=== PATIENT | male | born 1970 | race African-American/Black ===

== ENCOUNTER 2017-08-25 00:06 | Emergency (ER) | payer SELFPAY ==
[2017-08-25] MEDS ORDERED: OXYCODONE-ACETAMINOPHEN 5-325 MG TABLET PO ONE (01:18)
--- NOTE | 2017-08-25 01:22 | ER Document Report ---
ED General - General Chief Complaint: Knee Pain Stated Complaint: KNEE PAIN Time Seen by Provider: 08/25/17 01:09 Mode of Arrival: Ambulatory Information source: Patient, Relative Notes: 47-year-old male with a history of gout presents with complaint of left knee pain that started 5 days prior to arrival. Patient states that he awoke with left knee pain and swelling that has progressively worsened.Patient denies any recent injury. He states this occurs About once a year. He does usually have indomethacin but has run out. He denies any fever, chills, chest pain, shortness of breath. He denies any recent travel, recent surgery, history of malignancy or prior DVT. - Related Data Allergies/Adverse Reactions: No Known Allergies Allergy (Unverified 08/25/17 00:07) Past Medical History - General Information source: Patient - Social History Smoking Status: Never Smoker Frequency of alcohol use: None Drug Abuse: None Occupation: print binding and finishing worker Lives with: Spouse/Significant other Family History: Reviewed & Not Pertinent Patient has suicidal ideation: No Patient has homicidal ideation: No - Medical History Medical History: Other - Gout Review of Systems - Review of Systems Constitutional: denies: Fever, Weakness EENT: No symptoms reported Cardiovascular: denies: Chest pain, Palpitations Respiratory: denies: Cough, Hurts to breathe, Short of breath Gastrointestinal: denies: Nausea, Vomiting Musculoskeletal: Gout, Joint pain, Joint swelling, Leg swelling Physical Exam - Vital signs Vitals: Temp Pulse Resp BP Pulse Ox 98.6 F 76 18 179/109 H 97 08/25/17 00:16 08/25/17 00:16 08/25/17 00:16 08/25/17 00:16 08/25/17 00:16 - Extremities General upper extremity: Normal inspection, Nontender, Normal color, Normal ROM , Normal temperature General lower extremity: Normal inspection, Nontender, Normal color, Normal ROM , Normal temperature, Normal weight bearing. No: Randolph's sign Knee: Tender, Pain with ROM, Other - Large suprapatellar Left knee effusion. No : Deformity, Instability Calf: Tender Ankle: Normal Foot: Normal Course - Re-evaluation Re-evalutation: 08/25/17 02:16 Bedside ultrasound was performed using continuous compression from the common femoral artery down to the popliteal artery. There is good compressibility throughout and no evidence of DVT at this time. Bedside ultrasound was also used to evaluate left knee effusion. There is a large pocket of anechoic fluid. Patient agreeable to joint aspiration at this time. Risks of infection were discussed with the patient. 08/25/17 02:41 Ultrasound-guided arthrocentesis was performed using sterile procedure. The joint was injected with 10 cc of lidocaine. 40 cc of synovial fluid with blood was removed. Patient reports improvement of pain and improvement of range of motion after joint aspiration. 08/25/17 03:09 Patient requesting discharge home prior to results of fluid analysis. I have low suspicion for septic joint. I will call the patient with results once they are back. Knee X-Ray 08/25/17 01:18 IMPRESSION: Moderate suprapatellar left knee effusion. 08/26/17 12:21 analysis of fluid reviewed and consistent with an inflammatory effusion Microbiology 08/25/17 02:40 Gram Stain - Preliminary Knee Fluid - Joint Body Fluid Culture - Preliminary NO GROWTH IN 1 DAY Laboratory 08/25/17 08/25/17 02:40 02:40 Fluid Type SYNOVIAL SYNOVIAL Fluid Source KNEE LEFT KNEE Fluid Color RED Fluid Appearance CLOUDY Fluid Viscosity LIQUID Fluid WBC 5722 Fluid RBC 8444 Fluid Seg Neutrophils 80 Fluid Lymphocytes 16 Fluid Monocytes 4 Fluid Crystals NONE OBSERVED Ca Pyrophosphate Cryst NONE OBSERVED Synov Monosodium Urate NONE OBSERVED - Vital Signs Vital signs: Temp Pulse Resp BP Pulse Ox 98.3 F 72 14 149/98 H 97 08/25/17 03:40 08/25/17 03:40 08/25/17 03:40 08/25/17 03:40 08/25/17 03:40 Procedures - Joint Aspiration Left Knee Time completed: 02:43 Consent obtained: Yes - verbal Joint aspiration pre-procedure: Sterile PPE donned, Betadine prep applied, Sterile drapes applied Anesthetic type: 1% Lidocaine mL's of anesthetic: 10 Needle size: 25 Amount/type of drainage: 40 cc Number of attempts: 1 Complications: No Discharge - Discharge Clinical Impression: Effusion, left knee, Left knee pain Condition: Good Disposition: HOME, SELF-CARE Instructions: Ice & Elevation ([facility]), Knee Effusion ([facility]), Knee Immobilizing Splint ([facility]), Oral Narcotic Medication ([facility]) Prescriptions: Hydrocodone/Acetaminophen [Dent 5-325 mg Tablet] 1 tab PO Q6H #10 tablet Naproxen 500 mg PO Q12H #20 tablet Prednisone [Deltasone 20 mg Tablet] 3 tab PO DAILY 5 Days #15 tablet
--- NOTE | 2017-08-25 02:05 | RADIOLOGY REPORT (SQ) ---
EXAM DESCRIPTION: KNEE LEFT 2 VIEWS CLINICAL HISTORY: 47 years, Male, pain swelling COMPARISON: None. NUMBER OF VIEWS: Two Findings: Moderate suprapatellar joint effusion. Mild-moderate osteoarthritis. IMPRESSION: Moderate suprapatellar left knee effusion.
[2017-08-25] MEDS ORDERED: LIDOCAINE 1% INJ (10 MG/ML) 10 ML MDV INJ ONE (02:17)
[2017-08-25 03:34] LABS: CALCIUM PYROPHOSPHATE CRYSTALS NONE OBSERVED; MONOSODIUM URATE CRYSTALS NONE OBSERVED; OTHER CRYSTALS NONE OBSERVED
[2017-08-25 03:45] VITALS: BP 149/98
[2017-08-25 04:31] LABS: FLUID TYPE SYNOVIAL
[2017-08-25 04:32] LABS: FLUID APPEARANCE CLOUDY; FLUID COLOR RED; FLUID SOURCE KNEE; FLUID VISCOSITY LIQUID
== END 2017-08-25 03:47 | disposition home or self-care (01) ==
LOC: ER 00:06
PROC: 0S9D3ZZ Drainage of Left Knee Joint, Percutaneous Approach (ICD-10-PCS; principal; 2017-08-25)
PROC: BQ48ZZZ Ultrasonography of Left Knee (ICD-10-PCS; 2017-08-25)
DX: M25.462 Effusion, left knee (principal); M25.562 Pain in left knee; Z79.899 Other long term (current) drug therapy
CPT/HCPCS: 87070; 87075; 87205; 89050; 89060; 99284

== ENCOUNTER 2019-08-13 10:05 | Emergency (ER) | payer BC ==
[2019-08-13 11:05] LABS: ABSOLUTE BASOPHILS # (AUTO) 0.1 10^3/uL (0.0-0.2); ABSOLUTE LYMPHOCYTES (AUTO) 1.9 10^3/uL (0.5-4.7); ABSOLUTE MONOCYTES (AUTO) 0.4 10^3/uL (0.1-1.4); ABSOLUTE NEUT (AUTO) 2.7 10^3/uL (1.7-8.2); BASOPHILS % (AUTO) 1.1 % (0-2); EOSINOPHILS % (AUTO) 0.7 % (0-6); HEMATOCRIT 34.7 % (37.9-51.0); LYMPHOCYTES % (AUTO) 37.8 % (13-45); MEAN CORPUSCULAR HEMOGLOBIN 29.1 pg (27.0-33.4); MEAN CORPUSCULAR HGB CONC 34.5 g/dL (32.0-36.0); MEAN CORPUSCULAR VOLUME 84 fl (80-97); MONOCYTES % (AUTO) 7.7 % (3-13); PLATELET COUNT 290 10^3/uL (150-450); RED BLOOD COUNT 4.12 10^6/uL (4.35-5.55); RED CELL DISTRIBUTION WIDTH 15.2 % (11.5-14.0); SEGMENTED NEUTROPHILS % (AUTO) 52.7 % (42-78); TOTAL CELLS COUNTED % (AUTO) 100 %; WHITE BLOOD COUNT 5.1 10^3/uL (4.0-10.5)
--- NOTE | 2019-08-13 11:08 | RADIOLOGY REPORT (SQ) ---
EXAM DESCRIPTION: CHEST SINGLE VIEW COMPLETED DATE/TIME: 08/13/2019 10:55 am REASON FOR STUDY: bed 7 chest pain COMPARISON: None. EXAM PARAMETERS: NUMBER OF VIEWS: One view. TECHNIQUE: Single frontal radiographic view of the chest acquired. RADIATION DOSE: NA LIMITATIONS: None. FINDINGS: LUNGS AND PLEURA: No opacities, masses or pneumothorax. No pleural effusion. MEDIASTINUM AND HILAR STRUCTURES: No masses. Contour normal. HEART AND VASCULAR STRUCTURES: Heart normal in size. Normal vasculature. BONES: No acute findings. HARDWARE: None in the chest. OTHER: No other significant finding. IMPRESSION: NO ACUTE RADIOGRAPHIC FINDING IN THE CHEST. TECHNICAL DOCUMENTATION: JOB ID: [id number] 2010 [employer]- All Rights Reserved Reading location - IP/workstation name: [email or web address]
[2019-08-13 11:26] LABS: ALBUMIN 4.3 g/dL (3.5-5.0); ALKALINE PHOSPHATASE 107 U/L (38-126); ANION GAP 10 (5-19); ASPARTATE AMINO TRANSFERASE 53 U/L (17-59); BILIRUBIN,DIRECT 0.4 mg/dL (0.0-0.4); BILIRUBIN,TOTAL 0.8 mg/dL (0.2-1.3); BLOOD UREA NITROGEN 13 mg/dL (7-20); CALCIUM 9.7 mg/dL (8.4-10.2); CARBON DIOXIDE 23 mmol/L (22-30); CHLORIDE 104 mmol/L (98-107); CREATINE KINASE 209 U/L (55-170); GLUCOSE 90 mg/dL (75-110); POTASSIUM 5.6 mmol/L (3.6-5.0); TOTAL PROTEIN 8.5 g/dL (6.3-8.2)
[2019-08-13 11:35] LABS: CREATINE KINASE MB 2.17 ng/mL (<4.55)
[2019-08-13 11:40] LABS: TROPONIN I < 0.012 ng/mL
--- NOTE | 2019-08-13 11:43 | ER Document Report ---
ED General - General Chief Complaint: Chest Pain Stated Complaint: CHEST PAIN Time Seen by Provider: 08/13/19 11:24 Primary Care Provider: TIANNA BAEZ MD [Primary Care Provider] - Follow up as needed TRAVEL OUTSIDE OF THE [place] IN LAST 30 DAYS: No - HPI Notes: Patient is a 49-year-old male with a history of hypertension and hypercholesterolemia who presents complaining of having left chest pain that was described as sharp this morning when he was at work. Patient states that that pain has been coming and going, and can worsen with deep inspiration and certain movements intermittently as well. Pain does not radiate. Patient first went to an urgent care and was given nitro, aspirin, and clonidine as his systolic was over 200. Patient states that he believes the nitro did help. Pain is significantly improved from what it was. Patient states that he has not been t aking his medications for a couple months. Denies drug allergies. No history of DM, CAD. Denies any prolonged immobilization, distance travel, recent surgery/trauma, personal cancer history, hormone use, or previous DVT/PE. Denies any headache, fever, neck pain, URI, sore throat, palpitations, syncope, cough, shortness of breath, wheeze, dyspnea, abdominal pain, nausea/vomiting/diarrhea, urinary retention, dysuria, hematuria, or rash. - Related Data Allergies/Adverse Reactions: No Known Allergies Allergy (Unverified 08/25/17 00:07) Home Medications: LISINOPRIL AND SIMVASATIN BUT HAS NOT TAKEN IN SEVERAL MTHS. ALLOPURINOL AND MULTIVITAMIN Past Medical History - Social History Smoking Status: Never Smoker Chew tobacco use (# tins/day): No Frequency of alcohol use: Occasional Drug Abuse: None Family History: Reviewed & Not Pertinent Patient has suicidal ideation: No Patient has homicidal ideation: No - Past Medical History Cardiac Medical History: Reports: Hx Hypercholesterolemia, Hx Hypertension Renal/ Medical History: Denies: Hx Peritoneal Dialysis Review of Systems - Review of Systems -: Yes All other systems reviewed and negative Physical Exam - Vital signs Vitals: Pulse Ox 100 08/13/19 10:51 - Notes Notes: PHYSICAL EXAMINATION: GENERAL: Well-appearing, well-nourished and in no acute distress. HEAD: Atraumatic, normocephalic. EYES: Pupils equal round and reactive to light, extraocular movements intact, sclera anicteric, conjunctiva are normal. ENT: Nares patent and without discharge. oropharynx clear without exudates. N o tonsilar hypertrophy or erythema. Moist mucous membranes. NECK: Normal range of motion, supple without lymphadenopathy LUNGS: Breath sounds clear to auscultation bilaterally and equal. No wheezes rales or rhonchi. HEART: Regular rate and rhythm without murmurs, rubs, gallops. ABDOMEN: Soft, nontender, nondistended abdomen. No guarding, no rebound. Normal bowel sounds present. No CVA tenderness bilaterally. Musculoskeletal: FROM to passive/active. Strength 5+/5. Randolph neg. No asymmetry to LE's. Extremities: No cyanosis, clubbing, or edema b/l. Peripheral pulses 2+. Capillary refill less than 3 seconds. NEUROLOGICAL: Normal speech, normal gait. PSYCH: Normal mood, normal affect. SKIN: Warm, Dry, normal turgor, no rashes or lesions noted. Course - Re-evaluation Re-evalutation: 08/13/19 11:50 Patient is an afebrile, well-hydrated, 49-year-old male who presents with nonspecific chest pain. Vitals are acceptable without significant tachycardia, tachypnea, or hypoxia. PE is otherwise unremarkable. Patient's lungs are clear to auscultation bilaterally. He is nontoxic-appearing and is currently to lerating p.o. without difficulty. Initial labs and imaging are unremarkable. Patient does not have any dyspnea or shortness of breath associated. Patient believes the nitro may have helped, but is not entirely sure at this time. Patient is currently adamant that he does not want to be admitted to the hospital. Patient is agreeable to stay for a delta troponin. Pt's heart score is a 3. Wells score of 0. 08/13/19 14:02 I did review with Dr. Liu, 2nd enzyme neg. Pt states that he will still feel a little pain with deep inspiration and certain chest movements. Pt is still adamant about being discharged home. We will further evaluate with a d-dimer. If unremarkable we will discharge home w. strict return precautions. 08/13/19 14:53 D-dimer elevated. CTA ordered. 08/13/19 16:40 Patient is an afebrile, well-hydrated 49-year-old male who presents to the ED with atypical chest pain, reproduced by movement and deep breath. Vitals are acceptable without any significant tachycardia, tachypnea, or hypoxia. PE is otherwise unremarkable. Pt's lungs are CTAB. Patient is nontoxic-appearing and is tolerating p.o. without any difficulties. Pt is currently asymptomatic. CBC, CMP, EKG/cardiac enzymes 2, chest x-ray, CTA chest are all unremarkable for any acute pathology. Patient has a heart score of 3, Wells score of 0. Patient does not have any chest pain, dyspnea, or shortness of breath. Patient's presentation and symptomatology creates low suspicion for ACS, PE, pneumothorax, pericarditis, dissection, respiratory compromise, severe dehydration, sepsis, meningitis, or other systemic emergent condition at this time. Patient is aware that his condition can change from initial presentation and he needs to monitor symptoms closely and seek medical attention for any acute changes. Pt is feeling better and would like to go home. Pt does not want admitted. Recommend conservative measures for symptoms. Recheck with your PCM in 2-3 days. Schedule consult with Cardiology. Return to the ED with any worsening/concerning symptoms otherwise as reviewed in discharge. Patient is in agreement. - Vital Signs Vital signs: Temp Pulse Resp BP Pulse Ox 98.6 F 11 L 137/95 H 100 08/13/19 16:16 08/13/19 15:42 08/13/19 15:42 08/13/19 15:42 - Laboratory Result Diagrams: 08/13/19 10:46 08/13/19 10:46 Laboratory results interpreted by me: 08/13/19 08/13/19 08/13/19 10:46 10:46 14:15 RBC 4.12 L Hgb 12.0 L Hct 34.7 L RDW 15.2 H D-Dimer 1.13 H Potassium 5.6 H Creatine Kinase 209 H Total Protein 8.5 H Discharge - Discharge Clinical Impression: Atypical chest pain Condition: Stable Disposition: HOME, SELF-CARE Instructions: Chest Pain of Unclear Cause ([facility]) Additional Instructions: Maintain adequate fluid and food intake Take home medications as directed Low sodium/fat diet Monitor blood pressure daily and keep a log Monitor symptoms for any acute changes Recheck with your PCM in 3-5 days Schedule an appointment with cardiology for further evaluation and management Return to the ED with any worsening symptoms and/or development of fever, headache, chest pain, palpitations, syncope, shortness of breath, trouble breathing, abdominal pain, n/v/d, blood in stool/urine, loss of control of bowel/bladder, urinary retention, muscle weakness/paralysis, numbness/tingling, or other worsening symptoms that are concerning to you. Forms: Elevated Blood Pressure Referrals: DEE DEE GARRISON MD [ACTIVE STAFF] - Follow up in 3-5 days TIANNA BAEZ MD [Primary Care Provider] - Follow up in 3-5 days
--- NOTE | 2019-08-13 12:11 | EKG REPORT ---
SEVERITY:- NORMAL ECG - SINUS RHYTHM : Confirmed by: Harjit Rivera MD 13-Aug-2019 12:10:13
[2019-08-13] MEDS ORDERED: LABETALOL HCL INJ 20 MG/4 ML DISP.SYRIN IV ONE (13:05)
--- NOTE | 2019-08-13 16:15 | RADIOLOGY REPORT (SQ) ---
EXAM DESCRIPTION: CTA CHEST COMPLETED DATE/TIME: 08/13/2019 4:02 pm REASON FOR STUDY: chest pain, elevated d-dimer COMPARISON: None. TECHNIQUE: CT scan of the chest performed using helical scanning technique with dynamic intravenous contrast injection. Images reviewed with lung, soft tissue and bone windows. Reconstructed coronal and sagittal MPR images reviewed. Additional 3 dimensional post-processing performed to develop Maximal Intensity Projection images (DC P). All images stored on PACS. All CT scanners at this facility use dose modulation, iterative reconstruction, and/or weight based d osing when appropriate to reduce radiation dose to as low as reasonably achievable (ALARA). [facility]: Dose Right [facility]: CareDose [facility]: Dose Right [facility]: Teradose 4D [facility]: Looklet CONTRAST TYPE AND DOSE: contrast/concentration: Isovue 350.00 mg/ml; Total Contrast Delivered: 71.0 ml; Total Saline Delivered: 67.9 ml Contrast bolus adequate for pulmonary arteries and aorta. RENAL FUNCTION: BUN 13 creatinine 0.7. RADIATION DOSE: CT Rad equipment meets quality standard of care and radiation dose reduction techniq ues were employed. CTDIvol: 14.9 - 21.9 mGy. DLP: 868 mGy-cm. . LIMITATIONS: None. FINDINGS: LUNGS AND PLEURA: No masses, infiltrates, or pneumothorax. No pleural effusions or pleura l calcifications. AORTA AND GREAT VESSELS: No aneurysm. No dissection. Incidental duplicated left superior vena cava. HEART: No pericardial effusion. No significant coronary artery calcifications. PULMONARY ARTERIES: No emboli visualized in the main pulmonary arteries or the segmental branches. HILAR AND MEDIASTINAL STRUCTURES: No identified masses or abnormal nodes. HARDWARE: None in the chest. UPPER ABDOMEN: No significant findings. Limited exam. THYROID AND OTHER SOFT TISSUES: No masses. No adenopathy. BONES: No acute or significant finding. 3D MIPS: Confirm above findings. OTHER: No other significant finding. IMPRESSION: NORMAL CTA OF THE CHEST. NO PULMONARY EMBOLI. COMMENT: Quality ID # [id number]: Final reports with documentation of one or more dose reduction techniques (e.g., Automated exposure control, adjustment of the mA and/or kV according to patient size, use of iterative reconstruction technique) TECHNICAL DOCUMENTATION: JOB ID: [id number] 2010 [employer]- All Rights Reserved Reading location - IP/workstation name: [email or web address]
[2019-08-13 16:45] VITALS: BP 149/95
== END 2019-08-13 16:54 | disposition home or self-care (01) ==
LOC: ER 10:05
DX: R07.89 Other chest pain (principal); I10 Essential (primary) hypertension; T46.4X6A Underdosing of angiotensin-converting-enzyme inhibitors, initial encounter; E78.00 Pure hypercholesterolemia, unspecified; T46.6X6A Underdosing of antihyperlipidemic and antiarteriosclerotic drugs, initial encounter; Z91.14 Patient's other noncompliance with medication regimen; Z79.899 Other long term (current) drug therapy
CPT/HCPCS: 93005; 99285; 96374; 36415; 82553; 82550; 85025; 80053; 84484; 85379; 71045; 71275; 93010; J3490

== ENCOUNTER 2019-10-09 09:56 | Emergency (ER) | payer BC ==
--- NOTE | 2019-10-09 10:12 | ER Document Report ---
ED Medical Screen (RME) - General Chief Complaint: Chest Pain Stated Complaint: CHEST PAIN Time Seen by Provider: 10/09/19 10:05 Primary Care Provider: TIANNA BAEZ MD [Primary Care Provider] - Follow up as needed Notes: Patient is a 49-year-old male with a history of hypertension who presents to the emergency department with a chief complaint of chest pain and a headache. Patient states that his chest pain started yesterday afternoon. States that it is in the left side of his chest. He also has complaints of a headache, which started this morning. Patient states that he stopped taking his lisinopril because he was on vacation. He took his lisinopril this morning. Exam: Blood pressure 193/117. I have greeted and performed a rapid initial assessment of this patient. A comprehensive ED assessment and evaluation of the patient, analysis of test results and completion of medical decision making process will be conducted by an additional ED providers. TRAVEL OUTSIDE OF THE [place] IN LAST 30 DAYS: No - Related Data Allergies/Adverse Reactions: No Known Allergies Allergy (Verified 10/09/19 10:10) Past Medical History - Past Medical History Cardiac Medical History: Reports: Hx Hypercholesterolemia, Hx Hypertension Renal/ Medical History: Denies: Hx Peritoneal Dialysis Physical Exam - Vital signs Vitals: Temp Pulse Resp BP Pulse Ox 99.0 F 100 18 193/117 H 96 10/09/19 10:10/09/19 10:10/09/19 10:10/09/19 10:09 10/09/19 10:09 Course - Vital Signs Vital signs: Temp Pulse Resp BP Pulse Ox 99.0 F 100 18 193/117 H 96 10/09/19 10:09 10/09/19 10:09 10/09/19 10:10/09/19 10:10/09/19 10:09 Doctor's Discharge - Discharge Referrals: TIANNA BAEZ MD [Primary Care Provider] - Follow up as needed
[2019-10-09 10:29] LABS: ABSOLUTE LYMPHOCYTES (AUTO) 1.6 10^3/uL (0.5-4.7); ABSOLUTE MONOCYTES (AUTO) 0.5 10^3/uL (0.1-1.4); ABSOLUTE NEUT (AUTO) 3.9 10^3/uL (1.7-8.2); BASOPHILS % (AUTO) 0.5 % (0-2); EOSINOPHILS % (AUTO) 0.1 % (0-6); HEMATOCRIT 39.8 % (37.9-51.0); HEMOGLOBIN 13.4 g/dL (13.5-17.0); LYMPHOCYTES % (AUTO) 26.3 % (13-45); MEAN CORPUSCULAR HEMOGLOBIN 27.7 pg (27.0-33.4); MEAN CORPUSCULAR HGB CONC 33.7 g/dL (32.0-36.0); MEAN CORPUSCULAR VOLUME 82 fl (80-97); MONOCYTES % (AUTO) 7.9 % (3-13); PLATELET COUNT 316 10^3/uL (150-450); RED BLOOD COUNT 4.84 10^6/uL (4.35-5.55); RED CELL DISTRIBUTION WIDTH 17.5 % (11.5-14.0); SEGMENTED NEUTROPHILS % (AUTO) 65.2 % (42-78); TOTAL CELLS COUNTED % (AUTO) 100 %
--- NOTE | 2019-10-09 10:41 | RADIOLOGY REPORT (SQ) ---
EXAM DESCRIPTION: CT HEAD WITHOUT IMAGES COMPLETED DATE/TIME: 10/09/2019 10:33 am REASON FOR STUDY: headache; high blood pressure COMPARISON: None. TECHNIQUE: Axial images acquired through the brain without intravenous contrast. Images reviewed wi th bone, brain and subdural windows. Additional sagittal and coronal reconstructions were generated. Images stored on PACS. All CT scanners at this facility use dose modulation, iterative reconstruction, and/or weight based d osing when appropriate to reduce radiation dose to as low as reasonably achievable (ALARA). [facility]: Dose Right [facility]: CareDose [facility]: Dose Right [facility]: Teradose 4D [facility]: Qulsar RADIATION DOSE: CT Rad equipment meets quality standard of care and radiation dose reduction techniq ues were employed. CTDIvol: 53.2 mGy. DLP: 1044 mGy-cm. mGy. LIMITATIONS: None. FINDINGS: VENTRICLES: Normal size and contour. CEREBRUM: No masses. No hemorrhage. No midline shift. No evidence for acute infarction. Normal gra y/white matter differentiation. No areas of low density in the white matter. CEREBELLUM: No masses. No hemorrhage. No alteration of density. No evidence for acute infarction. EXTRAAXIAL SPACES: No fluid collections. No masses. ORBITS AND GLOBE: No intra- or extraconal masses. Normal contour of globe without masses. CALVARIUM: No fracture. PARANASAL SINUSES: No fluid or mucosal thickening. SOFT TISSUES: No mass or hematoma. OTHER: No other significant finding. IMPRESSION: NORMAL BRAIN CT WITHOUT CONTRAST. EVIDENCE OF ACUTE STROKE: NO. COMMENT: Quality ID # [id number]: Final reports with documentation of one or more dose reduction techniques (e.g., Automated exposure control, adjustment of the mA and/or kV according to patient size, use of iterative reconstruction technique) TECHNICAL DOCUMENTATION: JOB ID: [id number] 2010 [employer]- All Rights Reserved Reading location - IP/workstation name: [email or web address]
[2019-10-09 10:49] LABS: ALBUMIN 4.8 g/dL (3.5-5.0); ALKALINE PHOSPHATASE 137 U/L (38-126); ANION GAP 12 (5-19); ASPARTATE AMINO TRANSFERASE 40 U/L (17-59); BILIRUBIN,TOTAL 0.5 mg/dL (0.2-1.3); BLOOD UREA NITROGEN 12 mg/dL (7-20); CALCIUM 10.1 mg/dL (8.4-10.2); CARBON DIOXIDE 26 mmol/L (22-30); CHLORIDE 97 mmol/L (98-107); GLUCOSE 104 mg/dL (75-110); POTASSIUM 4.3 mmol/L (3.6-5.0); TOTAL PROTEIN 8.6 g/dL (6.3-8.2)
--- NOTE | 2019-10-09 11:01 | RADIOLOGY REPORT (SQ) ---
EXAM DESCRIPTION: CHEST SINGLE VIEW IMAGES COMPLETED DATE/TIME: 10/09/2019 10:36 am REASON FOR STUDY: chest pain COMPARISON: None. NUMBER OF VIEWS: One view. TECHNIQUE: Single frontal radiographic view of the chest acquired. LIMITATIONS: None. FINDINGS: LUNGS AND PLEURA: No opacities, masses or pneumothorax. No pleural effusion. MEDIASTINUM AND HILAR STRUCTURES: No masses. Contour normal. HEART AND VASCULAR STRUCTURES: Heart normal in size. Normal vasculature. BONES: No acute findings. HARDWARE: None in the chest. OTHER: No other significant finding. IMPRESSION: NO SIGNIFICANT RADIOGRAPHIC FINDING IN THE CHEST. TECHNICAL DOCUMENTATION: JOB ID: [id number] 2010 [employer]- All Rights Reserved Reading location - IP/workstation name: [email or web address]
[2019-10-09 11:17] VITALS: BP 176/106
--- NOTE | 2019-10-09 11:24 | ER Document Report ---
ED Cardiac - General Chief Complaint: Chest Pain Stated Complaint: CHEST PAIN Time Seen by Provider: 10/09/19 10:05 Primary Care Provider: TIANNA BAEZ MD [Primary Care Provider] - Follow up as needed Mode of Arrival: Ambulatory Information source: Patient TRAVEL OUTSIDE OF THE [place] IN LAST 30 DAYS: No - HPI Notes: Patient presents complaining of chest pain and headache. He states both the symptoms started yesterday. He states for the last week he has been on vacation and therefore is not taking his blood pressure medication. He states that he noticed his blood pressure was elevated yesterday. He has started taking his blood pressure medication again today. The headache is bilateral and throbbing. Nothing makes it better or worse. It does radiate throughout his head. The chest pain has been sharp and on the left side of the chest. He has had some mild shortness of breath with it. No nausea. Nothing makes the chest pain better or worse. - Related Data Allergies/Adverse Reactions: No Known Allergies Allergy (Verified 10/09/19 10:10) Home Medications: lisinopril, endomethicin, allopurinol, simvastatin, Past Medical History - General Information source: Patient - Social History Smoking Status: Never Smoker Chew tobacco use (# tins/day): Yes - 1/2 Frequency of alcohol use: Occasional Drug Abuse: None Family History: Reviewed & Not Pertinent Patient has homicidal ideation: No - Past Medical History Cardiac Medical History: Reports: Hx Hypercholesterolemia, Hx Hypertension Renal/ Medical History: Denies: Hx Peritoneal Dialysis Review of Systems - Review of Systems Constitutional: denies: Chills, Fever Cardiovascular: Chest pain. denies: Palpitations Respiratory: Short of breath. denies: Cough -: Yes All other systems reviewed and negative Physical Exam - Vital signs Vitals: Temp 99 F 10/09/19 09:56 Interpretation: Normal - General General appearance: Appears well, Alert - HEENT Head: Normocephalic, Atraumatic Eyes: Normal Pupils: PERRL - Respiratory Respiratory status: No respiratory distress Chest status: Nontender Breath sounds: Normal Chest palpation: Normal - Cardiovascular Rhythm: Regular Heart sounds: Normal auscultation Murmur: No - Abdominal Inspection: Normal Distension: No distension Bowel sounds: Normal Tenderness: Nontender Organomegaly: No organomegaly - Back Back: Normal, Nontender - Extremities General upper extremity: Normal inspection, Nontender, Normal color, Normal ROM, Normal temperature General lower extremity: Normal inspection, Nontender, Normal color, Normal ROM, Normal temperature, Normal weight bearing. No: Randolph's sign - Neurological Neuro grossly intact: Yes Cognition: Normal Orientation: AAOx4 [place] Coma Scale Eye Opening: Spontaneous Mal Coma Scale Verbal: Oriented Mal Coma Scale Motor: Obeys Commands Mal Coma Scale Total: 15 Speech: Normal Cranial nerves: Normal Cerebellar coordination: Normal Motor strength normal: LUE, RUE, LLE, RLE Additional motor exam normals: Equal developer evangelist. No: Pronator drift Sensory: Normal - Psychological Associated symptoms: Normal affect, Normal mood - Skin Skin Temperature: Warm Skin Moisture: Dry Skin Color: Normal Course - Re-evaluation Re-evalutation: 10/09/19 11:21 Patient presents with chest pain and headache. Patient has no evidence of CVA. Head CT and exam including complete neurological exam are normal. No evidence of any type of cardiac pathology. Patient will be instructed to take an extra lisinopril today. Patient also be instructed that he needs to discuss outpatient referral to cardiology for cardiac stress test. - Vital Signs Vital signs: Temp Pulse Resp BP Pulse Ox 99.4 F 82 14 176/106 H 97 10/09/19 10:33 10/09/19 10:33 10/09/19 11:04 10/09/19 11:04 10/09/19 11:04 - Laboratory Result Diagrams: 10/09/19 10:05 10/09/19 10:05 Laboratory results interpreted by me: 10/09/19 10/09/19 10:05 10:05 Hgb 13.4 L RDW 17.5 H Sodium 134.8 L Chloride 97 L Alkaline Phosphatase 137 H Total Protein 8.6 H - Diagnostic Test Radiology reviewed: Image reviewed, Reports reviewed - EKG Interpretation by Me EKG shows normal: Sinus rhythm Rate: Normal - 93 Rhythm: NSR [place]/QRS: No: Right axis deviation, Left axis deviation Discharge - Discharge Clinical Impression: Uncontrolled hypertension Chest pain Qualifiers: Chest pain type: unspecified Qualified Code(s): R07.9 - Chest pain, unspecified Headache Qualifiers: Headache type: unspecified Headache chronicity pattern: acute headache Intract ability: not intractable Qualified Code(s): R51 - Headache Condition: Stable Disposition: HOME, SELF-CARE Instructions: Chest Pain of Unclear Cause ([facility]), High Blood Pressure ([facility]) Additional Instructions: Please take an extra lisinopril this evening. Please start taking your normal once a day dose of lisinopril tomorrow. Please call your primary care doctor as soon as possible and discuss referral to cardiology for a cardiac stress test as soon as possible. Forms: Elevated Blood Pressure, Return to Work Referrals: TIANNA BAEZ MD [Primary Care Provider] - Follow up tomorrow (Call your primary as soon as possible to discuss cardiac stress test)
--- NOTE | 2019-10-09 22:04 | EKG REPORT ---
SEVERITY:- BORDERLINE ECG - SINUS RHYTHM PROBABLE LEFT ATRIAL ABNORMALITY BORDERLINE PROLONGED QT INTERVAL : Confirmed by: Evelia Angel MD 09-Oct-2019 22:03:33
== END 2019-10-09 11:52 | disposition home or self-care (01) ==
LOC: ER 09:56
DX: R07.9 Chest pain, unspecified (principal); I10 Essential (primary) hypertension; T46.4X6A Underdosing of angiotensin-converting-enzyme inhibitors, initial encounter; Z91.128 Patient's intentional underdosing of medication regimen for other reason; Z91.14 Patient's other noncompliance with medication regimen; R51 Headache; R06.02 Shortness of breath; E78.00 Pure hypercholesterolemia, unspecified; Z79.899 Other long term (current) drug therapy; Z72.0 Tobacco use
CPT/HCPCS: 36415; 70450; 71045; 80053; 83690; 83735; 84484; 85025; 93005; 93010; 99285

== ENCOUNTER 2020-02-21 07:03 | Day surgery (SDC) | payer BC ==
[2020-02-21] MEDS ORDERED: PROPOFOL INJ 200 MG/20 ML VIAL IV ONE ×2 (07:22→09:09)
--- NOTE | 2020-02-21 08:40 | Operative Report ---
Operative Report DATE OF SURGERY: 02/21/20 Operative Report: The risk, benefits and alternatives of the procedure including the risk of bleeding, perforation requiring surgery have been explained to the patient in detail and informed consent has been obtained. Patient is placed in a left, lateral decubital position. Timeout was called. Propofol medication is administered. Rectal examination is done which did not reveal any masses, tears or fissures. An Olympus videoscope was introduced into the patient's rectum. Scope was then carefully advanced all the way to the cecum. Cecum was identified by the usual anatomical landmarks including the ileocecal valve as well as the appendiceal office. Photodocumentation is obtained. Scope was then sequentially pulled back via the various segments of the colon including the ascending colon, hepatic flexure, transverse colon, splenic flexure, descending colon and finally into the rectosigmoid portions of the colon. Retroflexion maneuvers performed. PREOPERATIVE DIAGNOSIS: Colorectal cancer screening POSTOPERATIVE DIAGNOSIS: Normal screening colonoscopy OPERATION: Diagnostic colonoscopy SURGEON: SARI RYDER ANESTHESIA: LMAC TISSUE REMOVED OR ALTERED: None. COMPLICATIONS: None. ESTIMATED BLOOD LOSS: None. INTRAOPERATIVE FINDINGS: As noted above. PROCEDURE: Patient tolerated the procedure well. No immediate postprocedure complications are noted. Patient is discharged in good condition. Discharge date 02/21/2020. Discharge diet: Regular. Discharge activity: Regular. 2 to 3-week follow-up to discuss findings. Patient is instructed to call the office or proceed to the emergency room should there be any further problems or questions. 10-year surveillance colonoscopy.
[2020-02-21 09:12] VITALS: BP 127/68
== END 2020-02-21 09:09 | disposition home or self-care (01) ==
LOC: END 07:03
PROVIDERS: ATTEND Internal Medicine Gastroenterology
DX: Z12.11 Encounter for screening for malignant neoplasm of colon (principal); I10 Essential (primary) hypertension; M10.9 Gout, unspecified; F17.220 Nicotine dependence, chewing tobacco, uncomplicated; Z68.30 Body mass index [BMI] 30.0-30.9, adult; Z79.899 Other long term (current) drug therapy; Z03.818 Encounter for observation for suspected exposure to other biological agents ruled out
CPT/HCPCS: 45378; 00812; U0003; J2704; C9803; 812; 87635